=== PATIENT | male | born 1980 | race Caucasian/White ===

== ENCOUNTER 2023-04-30 09:15 | Outpatient (REF) | payer OTHER, SELFPAY ==
[2023-04-30 09:53] LABS: SARS-CoV-2 Ag NEGATIVE (NEGATIVE)
[2023-05-01 08:29] LABS: SARS-CoV-2 NAA INCONCLUSIVE (NOT DETECTE)
== END 2023-04-30 09:16 | disposition home or self-care (01) ==
LOC: LAB 09:15
PROVIDERS: PCP Family Medicine; Visit Provider Family Medicine
DX: R52 Pain, unspecified (principal); R50.9 Fever, unspecified; R05.1 Acute cough
CPT/HCPCS: 87635; 87811